=== PATIENT | female | born 1995 | race Hispanic/Latino ===

== ENCOUNTER 2017-12-20 19:43 | Observation (INO) | payer MEDICAID ==
[~2017-12-20] VITALS: Ht 167.6 cm; Wt 75.3 kg
[~2017-12-20 19:43] MED LIST: PREN-64 PO
[2017-12-20 20:19] LABS: APPEARANCE,URINE Clear (CLEAR); BILIRUBIN,URINE Negative (NEGATIVE); COLOR,URINE Yellow (YELLOW); GLUCOSE, URINE (UA) Negative (NEGATIVE); KETONES,URINE Negative (NEGATIVE); LEUKOCYTE ESTERASE ,URINE Negative (NEGATIVE); NITRATE,URINE Negative (NEGATIVE); OCCULT BLOOD,URINE Negative (NEGATIVE); PH,URINE 7.5 (5.0-8.0); PROTEIN,URINE Negative (NEGATIVE); UROBILINOGEN,URINE 0.2 mg/dL (0.2-1.0)
== END 2017-12-20 21:05 | disposition home or self-care (01) ==
LOC: EDH 19:43 → LDH 20:01
PROVIDERS: ADMIT Obstetrics & Gynecology; ATTEND Obstetrics & Gynecology
DX: O26.893 Other specified pregnancy related conditions, third trimester (principal); R10.9 Unspecified abdominal pain; Z3A.30 30 weeks gestation of pregnancy
CPT/HCPCS: 81003; 99285; G0378

== ENCOUNTER 2021-12-29 21:25 | Emergency (ER) | payer MEDICAID, OTHER ==
[~2021-12-29] VITALS: Ht 167.6 cm; Wt 86.2 kg
[2021-12-29] MEDS ORDERED: ONDANSETRON 4MG INJ IVP ONE (22:00)
[2021-12-29] MEDS ORDERED: LORAZEPAM 2 MG/ML 1 ML VIAL IVP ONE (22:00)
[2021-12-29] MEDS ORDERED: DICYCLOMINE 20MG (10MG/ML) AMP IM ONE (22:00)
[2021-12-29] MEDS ORDERED: 0.9%NACL 1000ML 2,000 ML IV ONE (22:00)
[2021-12-29 22:19] LABS: BASOPHILS % (AUTO) 0.3 % (0.0-5.0); EOSINOPHILS % (AUTO) 4.8 % (0.0-8.0); HEMATOCRIT 39.1 % (36-48); LYMPHOCYTES % (AUTO) 18.8 % (21.0-51.0); MEAN CORPUSCULAR HEMOGLOBIN 30.3 pg (27.0-33.0); MEAN CORPUSCULAR VOLUME 89.1 fL (79-99); MONOCYTES % (AUTO) 4.5 % (3.0-13.0); NEUTROPHILS % (AUTO) 71.3 % (40.0-77.0); PLATELET COUNT (AUTO) 386 K/uL (130-400); RED BLOOD CELL COUNT(AUTO) 4.39 MIL/uL (4.00-5.50); RED CELL DISTRIBUTION WIDTH 12.4 % (11.0-15.5); WHITE BLOOD COUNT (AUTO) 11.6 K/uL (4.8-10.8)
[2021-12-29 22:37] LABS: ALBUMIN 3.7 g/dL (3.5-5.0); BILIRUBIN,TOTAL 1.3 mg/dL (0.2-1.0); CREATININE 0.7 mg/dL (0.5-1.5); TOTAL PROTEIN, SERUM 7.2 g/dL (6.0-8.3)
[2021-12-29 23:01] LABS: APPEARANCE,URINE Cloudy (CLEAR); BILIRUBIN,URINE Negative (NEGATIVE); COLOR,URINE Dark Yellow (YELLOW); GLUCOSE, URINE (UA) Negative (NEGATIVE); KETONES,URINE Negative (NEGATIVE); LEUKOCYTE ESTERASE ,URINE Small (NEGATIVE); NITRATE,URINE Negative (NEGATIVE); OCCULT BLOOD,URINE Negative (NEGATIVE); PH,URINE 6.5 (5.0-8.0); PROTEIN,URINE Negative (NEGATIVE); UROBILINOGEN,URINE >=8.0 mg/dL (0.2-1.0)
[2021-12-29 23:09] LABS: RBC,URINE 0-1 /HPF (0-1)
[2021-12-29 23:10] LABS: BACTERIA,URINE Rare /HPF (None Seen); SQUAMOUS EPITHELIAL CELL,UR Many /HPF (0-2)
[2021-12-29 23:15] VITALS: BP 124/78
[2021-12-29 23:17] LABS: HCG,QUAL RESULT NEGATIVE (NEGATIVE)
[2021-12-30] MEDS ORDERED: POTASSIUM CHLORIDE 10% ELIXIR 20 MEQ/15 ML UDCUP PO ONE
[2021-12-30] MEDS ORDERED: ONDA4TAB10 PO (00:15)
[2021-12-30] MEDS ORDERED: HYOS0.124 SL (00:15)
== END 2021-12-30 00:43 | disposition home or self-care (01) ==
LOC: EDH 21:25
DX: K52.9 Noninfective gastroenteritis and colitis, unspecified (principal); E86.9 Volume depletion, unspecified; E87.6 Hypokalemia; F41.9 Anxiety disorder, unspecified; Z90.49 Acquired absence of other specified parts of digestive tract
CPT/HCPCS: 36415; 80053; 81001; 81025; 85025; 96361; 96372; 96374; 96375; 99284; J0500; J2060; J2405; J7030

== ENCOUNTER 2023-02-14 17:16 | Emergency (ER) | payer MEDICAID ==
[~2023-02-14] VITALS: Ht 170.2 cm; Wt 79.8 kg
[~2023-02-14 17:16] MED LIST changes: +HYOS0.124 SL; +ONDA4TAB10 PO
[2023-02-14 17:41] LABS: BASOPHILS % (AUTO) 0.7 % (0.0-5.0); EOSINOPHILS % (AUTO) 0.7 % (0.0-8.0); HEMATOCRIT 38.9 % (36-48); LYMPHOCYTES % (AUTO) 13.6 % (21.0-51.0); MEAN CORPUSCULAR HEMOGLOBIN 30.8 pg (27.0-33.0); MEAN CORPUSCULAR HGB CONC 33.7 g/dL (32.0-36.0); MEAN CORPUSCULAR VOLUME 91.3 fL (79-99); MONOCYTES % (AUTO) 8.2 % (3.0-13.0); NEUTROPHILS % (AUTO) 76.3 % (40.0-77.0); PLATELET COUNT (AUTO) 309 K/uL (130-400); RED BLOOD CELL COUNT(AUTO) 4.26 MIL/uL (4.00-5.50); WHITE BLOOD COUNT (AUTO) 8.3 K/uL (4.8-10.8)
[2023-02-14 17:46] LABS: HCG,QUALITATIVE URINE POSITIVE (NEGATIVE)
[2023-02-14 17:47] LABS: APPEARANCE,URINE CLEAR (CLEAR); BILIRUBIN,URINE NEGATIVE (NEGATIVE); COLOR,URINE COLORLESS (YELLOW); GLUCOSE, URINE (UA) NEGATIVE (NEGATIVE); KETONES,URINE NEGATIVE (NEGATIVE); LEUKOCYTE ESTERASE ,URINE NEGATIVE Leu/uL (NEGATIVE); NITRATE,URINE NEGATIVE (NEGATIVE); OCCULT BLOOD,URINE NEGATIVE (NEGATIVE); PROTEIN,URINE NEGATIVE (NEGATIVE); UROBILINOGEN,URINE 0.2 mg/dL (0.2-1.0)
[2023-02-14 17:51] LABS: ALBUMIN 3.6 g/dL (3.5-5.0); CREATININE 0.6 mg/dL (0.5-1.5); POTASSIUM 3.5 mmol/L (3.5-5.1); TOTAL PROTEIN, SERUM 7.6 g/dL (6.0-8.3)
[2023-02-14 17:52] LABS: RBC,URINE 0-1 /HPF (0-1); SQUAMOUS EPITHELIAL CELL,UR RARE /HPF (0-2); WBC,URINE 0-1 /HPF (0-1)
[2023-02-14 20:50] VITALS: BP 117/84
== END 2023-02-14 20:52 | disposition home or self-care (01) ==
LOC: EDH 17:16
DX: O26.891 Other specified pregnancy related conditions, first trimester (principal); R10.30 Lower abdominal pain, unspecified; R50.9 Fever, unspecified; F41.9 Anxiety disorder, unspecified; Z3A.09 9 weeks gestation of pregnancy; Z90.49 Acquired absence of other specified parts of digestive tract; Z79.899 Other long term (current) drug therapy
CPT/HCPCS: 36415; 76801; 80053; 81001; 81025; 85025

== ENCOUNTER 2023-03-22 16:44 | Emergency (ER) | payer MEDICAID ==
[~2023-03-22] VITALS: Ht 170.2 cm; Wt 82.3 kg
[2023-03-22 17:11] LABS: BASOPHILS % (AUTO) 0.4 % (0.0-5.0); EOSINOPHILS % (AUTO) 1.1 % (0.0-8.0); HEMATOCRIT 36.6 % (36-48); LYMPHOCYTES % (AUTO) 15.6 % (21.0-51.0); MEAN CORPUSCULAR HEMOGLOBIN 30.6 pg (27.0-33.0); MEAN CORPUSCULAR HGB CONC 34.2 g/dL (32.0-36.0); MEAN CORPUSCULAR VOLUME 89.5 fL (79-99); MONOCYTES % (AUTO) 6.1 % (3.0-13.0); PLATELET COUNT (AUTO) 310 K/uL (130-400); RED BLOOD CELL COUNT(AUTO) 4.09 MIL/uL (4.00-5.50); RED CELL DISTRIBUTION WIDTH 12.3 % (11.0-15.5)
[2023-03-22 17:32] LABS: ALBUMIN 3.1 g/dL (3.5-5.0); CREATININE 0.5 mg/dL (0.5-1.5); POTASSIUM 3.6 mmol/L (3.5-5.1)
[2023-03-22] MEDS ORDERED: DOXY1TAB3 PO (18:28)
[2023-03-22 18:40] LABS: APPEARANCE,URINE CLOUDY (CLEAR); BILIRUBIN,URINE NEGATIVE (NEGATIVE); COLOR,URINE LIGHT-YELLOW (YELLOW); GLUCOSE, URINE (UA) NEGATIVE (NEGATIVE); KETONES,URINE NEGATIVE (NEGATIVE); LEUKOCYTE ESTERASE ,URINE NEGATIVE Leu/uL (NEGATIVE); NITRATE,URINE NEGATIVE (NEGATIVE); OCCULT BLOOD,URINE NEGATIVE (NEGATIVE); PROTEIN,URINE NEGATIVE (NEGATIVE); UROBILINOGEN,URINE 0.2 mg/dL (0.2-1.0)
[2023-03-22 18:41] LABS: HCG,QUALITATIVE URINE POSITIVE (NEGATIVE)
[2023-03-22 18:47] LABS: MUCUS,URINE RARE LPF (None Seen); SQUAMOUS EPITHELIAL CELL,UR FEW /HPF (0-2); YEAST,URINE BUDDING RARE /HPF (None Seen)
[2023-03-22 18:51] LABS: HCG,QUANTITATIVE 30589 mIU/mL (0-5); LIPASE 62 U/L (114-286)
[2023-03-22] MEDS ORDERED: ONDANSETRON ODT 4MG TAB SL ONE (19:00)
[2023-03-22] MEDS ORDERED: ACETAMINOPHEN 325 MG TAB PO ONE (19:00)
[2023-03-22 19:25] VITALS: BP 114/77
== END 2023-03-22 20:00 | disposition home or self-care (01) ==
LOC: EDH 16:44
DX: O21.0 Mild hyperemesis gravidarum (principal); O26.892 Other specified pregnancy related conditions, second trimester; R55 Syncope and collapse; S09.90XA Unspecified injury of head, initial encounter; F41.9 Anxiety disorder, unspecified; Z3A.14 14 weeks gestation of pregnancy; Z90.49 Acquired absence of other specified parts of digestive tract; W18.30XA Fall on same level, unspecified, initial encounter; Y93.89 Activity, other specified; Y92.89 Other specified places as the place of occurrence of the external cause; Y99.8 Other external cause status
CPT/HCPCS: 36415; 76805; 80053; 81001; 81025; 83690; 84702; 85025; 87088; 93005

== ENCOUNTER 2023-03-24 18:42 | Emergency (ER) | payer MEDICAID ==
[~2023-03-24] VITALS: Ht 170.2 cm; Wt 81.6 kg
[~2023-03-24 18:42] MED LIST changes: +DOXY1TAB3 PO
[2023-03-24] MEDS ORDERED: ONDANSETRON 4MG INJ IVP ONE (19:30)
[2023-03-24] MEDS ORDERED: 0.9%NACL 1000ML 1,000 ML IV SCH (19:30)
[2023-03-24 20:11] LABS: BASOPHILS % (AUTO) 0.6 % (0.0-5.0); EOSINOPHILS % (AUTO) 1.4 % (0.0-8.0); LYMPHOCYTES % (AUTO) 18.4 % (21.0-51.0); MEAN CORPUSCULAR HEMOGLOBIN 30.9 pg (27.0-33.0); MEAN CORPUSCULAR HGB CONC 34.3 g/dL (32.0-36.0); MONOCYTES % (AUTO) 4.9 % (3.0-13.0); PLATELET COUNT (AUTO) 291 K/uL (130-400); RED BLOOD CELL COUNT(AUTO) 4.11 MIL/uL (4.00-5.50); RED CELL DISTRIBUTION WIDTH 12.2 % (11.0-15.5); WHITE BLOOD COUNT (AUTO) 10.6 K/uL (4.8-10.8)
[2023-03-24 20:21] LABS: CREATININE 0.6 mg/dL (0.5-1.5); HCG,QUALITATIVE URINE POSITIVE (NEGATIVE); POTASSIUM 3.6 mmol/L (3.5-5.1)
[2023-03-24 20:22] LABS: APPEARANCE,URINE CLOUDY (CLEAR); BILIRUBIN,URINE NEGATIVE (NEGATIVE); COLOR,URINE YELLOW (YELLOW); GLUCOSE, URINE (UA) NEGATIVE (NEGATIVE); KETONES,URINE 10 mg/dL (NEGATIVE); LEUKOCYTE ESTERASE ,URINE NEGATIVE Leu/uL (NEGATIVE); NITRATE,URINE NEGATIVE (NEGATIVE); OCCULT BLOOD,URINE NEGATIVE (NEGATIVE); PH,URINE 6.5 (5.0-8.0); PROTEIN,URINE 70 mg/dL (NEGATIVE); UROBILINOGEN,URINE 0.2 mg/dL (0.2-1.0)
[2023-03-24 20:29] LABS: ALBUMIN 3.1 g/dL (3.5-5.0); BACTERIA,URINE RARE /HPF (None Seen); MUCUS,URINE MOD LPF (None Seen); SQUAMOUS EPITHELIAL CELL,UR MOD /HPF (0-2); TOTAL PROTEIN, SERUM 7.2 g/dL (6.0-8.3)
[2023-03-24] MEDS ORDERED: DOXY1TAB8 PO (21:11)
[2023-03-24 22:14] VITALS: BP 117/72
== END 2023-03-24 22:34 | disposition home or self-care (01) ==
LOC: EDH 18:42
DX: O21.0 Mild hyperemesis gravidarum (principal); O26.892 Other specified pregnancy related conditions, second trimester; F41.9 Anxiety disorder, unspecified; Z3A.15 15 weeks gestation of pregnancy; Z79.899 Other long term (current) drug therapy; Z98.890 Other specified postprocedural states; Z90.49 Acquired absence of other specified parts of digestive tract
CPT/HCPCS: 99285; 96374; 76805; 96361; 80053; 83690; 85025; 81001; 81025; 36415; J7030; J2405

== ENCOUNTER 2023-05-27 22:27 | Observation (INO) | payer MEDICAID ==
[~2023-05-27] VITALS: Ht 170.2 cm; Wt 89.8 kg
[~2023-05-27 22:27] MED LIST changes: +DOXY1TAB8 PO
[2023-05-27 22:28] VITALS: BP 124/74
[2023-05-27 23:04] LABS: APPEARANCE,URINE CLEAR (CLEAR); BILIRUBIN,URINE NEGATIVE (NEGATIVE); GLUCOSE, URINE (UA) NEGATIVE (NEGATIVE); KETONES,URINE NEGATIVE (NEGATIVE); LEUKOCYTE ESTERASE ,URINE NEGATIVE Leu/uL (NEGATIVE); NITRATE,URINE NEGATIVE (NEGATIVE); OCCULT BLOOD,URINE NEGATIVE (NEGATIVE); PROTEIN,URINE NEGATIVE (NEGATIVE); UROBILINOGEN,URINE 0.2 mg/dL (0.2-1.0)
[2023-05-27 23:07] LABS: COLOR,URINE Light-Yellow (YELLOW)
[2023-05-27 23:11] LABS: AMPHET/METH SCREEN,URINE NEGATIVE (NEGATIVE); BARBITURATE SCREEN, URINE NEGATIVE (NEGATIVE); BENZODIAZEPINES SCREEN,URINE NEGATIVE (NEGATIVE); CANNABINOID SCREEN,URINE NEGATIVE (NEGATIVE); COCAINE SCREEN,URINE NEGATIVE (NEGATIVE); OPIATE SCREEN,URINE NEGATIVE (NEGATIVE); PHENCYCLIDINE SCREEN,URINE NEGATIVE (NEGATIVE)
[2023-05-27] MEDS ORDERED: LACTATED RINGERS 1000ML IV PRN (23:30)
== END 2023-05-28 00:42 | disposition home or self-care (01) ==
LOC: EDH 22:27 → LDH 22:38
PROVIDERS: ADMIT Obstetrics & Gynecology; ATTEND Obstetrics & Gynecology
DX: O62.9 Abnormality of forces of labor, unspecified (principal); O26.892 Other specified pregnancy related conditions, second trimester; R10.2 Pelvic and perineal pain; Z3A.24 24 weeks gestation of pregnancy; Z79.899 Other long term (current) drug therapy
CPT/HCPCS: 59025; 80305; 81003; 96360; G0378 ×2; G0379

== ENCOUNTER 2023-06-09 21:35 | Observation (INO) | payer MEDICAID ==
[~2023-06-09] VITALS: Ht 170.2 cm; Wt 95.3 kg
[2023-06-09 21:58] VITALS: BP 127/77; PULSE 84; RESP 18
[2023-06-09 23:50] LABS: APPEARANCE,URINE CLEAR (CLEAR); BILIRUBIN,URINE NEGATIVE (NEGATIVE); COLOR,URINE LIGHT-YELLOW (YELLOW); GLUCOSE, URINE (UA) NEGATIVE (NEGATIVE); KETONES,URINE NEGATIVE (NEGATIVE); LEUKOCYTE ESTERASE ,URINE NEGATIVE Leu/uL (NEGATIVE); NITRATE,URINE NEGATIVE (NEGATIVE); OCCULT BLOOD,URINE NEGATIVE (NEGATIVE); PH,URINE 7.5 (5.0-8.0); PROTEIN,URINE NEGATIVE (NEGATIVE); UROBILINOGEN,URINE 0.2 mg/dL (0.2-1.0)
== END 2023-06-10 00:15 | disposition home or self-care (01) ==
LOC: EDH 21:35 → LDH 21:36
PROVIDERS: ADMIT Obstetrics & Gynecology; ATTEND Obstetrics & Gynecology
DX: O26.892 Other specified pregnancy related conditions, second trimester (principal); R10.31 Right lower quadrant pain; R10.2 Pelvic and perineal pain; Z3A.26 26 weeks gestation of pregnancy
CPT/HCPCS: 59025; 81003; G0378 ×2

== ENCOUNTER 2023-07-15 19:25 | Observation (INO) | payer MEDICAID ==
[~2023-07-15] VITALS: Ht 170.2 cm; Wt 93.0 kg
[2023-07-15 20:05] VITALS: BP 123/77; PULSE 112; RESP 20
[2023-07-15 20:37] LABS: APPEARANCE,URINE CLOUDY (CLEAR); BILIRUBIN,URINE NEGATIVE (NEGATIVE); COLOR,URINE LIGHT-YELLOW (YELLOW); GLUCOSE, URINE (UA) NEGATIVE (NEGATIVE); KETONES,URINE NEGATIVE (NEGATIVE); LEUKOCYTE ESTERASE ,URINE 25 Leu/uL (NEGATIVE); NITRATE,URINE NEGATIVE (NEGATIVE); OCCULT BLOOD,URINE NEGATIVE (NEGATIVE); PH,URINE 6.5 (5.0-8.0); PROTEIN,URINE NEGATIVE (NEGATIVE); UROBILINOGEN,URINE 0.2 mg/dL (0.2-1.0)
[2023-07-15 20:38] LABS: ADD UA MICROSCOPIC YES
[2023-07-15 20:44] LABS: BACTERIA,URINE RARE /HPF (None Seen); MUCUS,URINE RARE LPF (None Seen); SQUAMOUS EPITHELIAL CELL,UR MOD /HPF (0-2)
== END 2023-07-15 22:05 | disposition home or self-care (01) ==
LOC: EDH 19:25 → LDH 20:20
PROVIDERS: ADMIT Obstetrics & Gynecology; ATTEND Obstetrics & Gynecology
DX: O36.8130 Decreased fetal movements, third trimester, not applicable or unspecified (principal); Z3A.31 31 weeks gestation of pregnancy
CPT/HCPCS: 59025; 81001; 76819; G0378 ×2; G0379

== ENCOUNTER 2023-07-24 08:59 | Observation (INO) | payer MEDICAID ==
[~2023-07-24] VITALS: Ht 170.2 cm; Wt 93.0 kg
[2023-07-24 09:04] VITALS: PULSE 106; RESP 20
[2023-07-24] MEDS ORDERED: LACTATED RINGERS 1000ML 1,000 ML IV PRN (09:30)
[2023-07-24 10:12] LABS: APPEARANCE,URINE CLOUDY (CLEAR); BILIRUBIN,URINE NEGATIVE (NEGATIVE); COLOR,URINE YELLOW (YELLOW); GLUCOSE, URINE (UA) NEGATIVE (NEGATIVE); KETONES,URINE 40 mg/dL (NEGATIVE); LEUKOCYTE ESTERASE ,URINE NEGATIVE Leu/uL (NEGATIVE); NITRATE,URINE NEGATIVE (NEGATIVE); OCCULT BLOOD,URINE NEGATIVE (NEGATIVE); PH,URINE 6.5 (5.0-8.0); PROTEIN,URINE 50 mg/dL (NEGATIVE); UROBILINOGEN,URINE 0.2 mg/dL (0.2-1.0)
[2023-07-24 10:13] LABS: ADD UA MICROSCOPIC YES
[2023-07-24 10:25] LABS: BACTERIA,URINE RARE /HPF (None Seen); MUCUS,URINE RARE LPF (None Seen); SQUAMOUS EPITHELIAL CELL,UR MOD /HPF (0-2)
[2023-07-24 10:37] LABS: INFLUENZA TYPE A Negative For Type A (NEGATIVE); INFLUENZA TYPE B Negative For Type B (NEGATIVE)
[2023-07-24 12:03] VITALS: BP 107/65
== END 2023-07-24 12:15 | disposition home or self-care (01) ==
LOC: EDH 08:59 → LDH 09:00 → EDH 09:11
PROVIDERS: ADMIT Obstetrics & Gynecology; ATTEND Obstetrics & Gynecology
DX: O62.9 Abnormality of forces of labor, unspecified (principal); Z20.822 Contact with and (suspected) exposure to COVID-19; O21.2 Late vomiting of pregnancy; Z3A.32 32 weeks gestation of pregnancy
CPT/HCPCS: 59025; 96360; 96361; 87804 ×2; 87426; 81001; G0378 ×3; J7120

== ENCOUNTER 2023-08-02 17:16 | Observation (INO) | payer MEDICAID ==
[~2023-08-02] VITALS: Ht 170.2 cm; Wt 93.4 kg
[2023-08-02 17:45] LABS: APPEARANCE,URINE CLEAR (CLEAR); BILIRUBIN,URINE NEGATIVE (NEGATIVE); COLOR,URINE LIGHT-YELLOW (YELLOW); GLUCOSE, URINE (UA) NEGATIVE (NEGATIVE); KETONES,URINE NEGATIVE (NEGATIVE); LEUKOCYTE ESTERASE ,URINE NEGATIVE Leu/uL (NEGATIVE); NITRATE,URINE NEGATIVE (NEGATIVE); OCCULT BLOOD,URINE NEGATIVE (NEGATIVE); PH,URINE 6.5 (5.0-8.0); PROTEIN,URINE 10 mg/dL (NEGATIVE); UROBILINOGEN,URINE 0.2 mg/dL (0.2-1.0)
[2023-08-02 17:49] LABS: ADD UA MICROSCOPIC YES; BACTERIA,URINE RARE /HPF (None Seen); MUCUS,URINE RARE LPF (None Seen); RBC,URINE 0-1 /HPF (0-1); SQUAMOUS EPITHELIAL CELL,UR FEW /HPF (0-2); WBC,URINE 0-1 /HPF (0-1)
[2023-08-02 17:52] LABS: AMPHET/METH SCREEN,URINE NEGATIVE (NEGATIVE); BARBITURATE SCREEN, URINE NEGATIVE (NEGATIVE); BENZODIAZEPINES SCREEN,URINE NEGATIVE (NEGATIVE); CANNABINOID SCREEN,URINE NEGATIVE (NEGATIVE); COCAINE SCREEN,URINE NEGATIVE (NEGATIVE); OPIATE SCREEN,URINE NEGATIVE (NEGATIVE); PHENCYCLIDINE SCREEN,URINE NEGATIVE (NEGATIVE)
== END 2023-08-02 18:18 | disposition home or self-care (01) ==
LOC: LDH 17:16
PROVIDERS: ADMIT Obstetrics & Gynecology; ATTEND Obstetrics & Gynecology
DX: O62.9 Abnormality of forces of labor, unspecified (principal); O99.343 Other mental disorders complicating pregnancy, third trimester; F32.A Depression, unspecified; Z3A.33 33 weeks gestation of pregnancy
CPT/HCPCS: 80305; 81001; G0379; G0378

== ENCOUNTER 2023-09-01 15:34 | Observation (INO) | payer MEDICAID ==
[~2023-09-01] VITALS: Ht 170.2 cm; Wt 97.1 kg
[2023-09-01 15:35] VITALS: PULSE 123; RESP 22
[2023-09-01] MEDS ORDERED: LACTATED RINGERS 1000ML 1,000 ML IV PRN (16:00)
[2023-09-01 16:27] LABS: BASOPHILS # (AUTO) 0.03 K/uL (0.00-0.20); BASOPHILS % (AUTO) 0.3 % (0.0-5.0); EOSINOPHILS # (AUTO) 0.07 K/uL (0.00-0.70); EOSINOPHILS % (AUTO) 0.8 % (0.0-8.0); HEMATOCRIT 30.9 % (36-48); IMMATURE GRANULOCYTE ABSOLUTE 0.07 K/uL (0-1); LYMPHOCYTES # (AUTO) 1.1 K/uL (1.0-4.8); LYMPHOCYTES % (AUTO) 13.1 % (21.0-51.0); MEAN CORPUSCULAR HEMOGLOBIN 28.9 pg (27.0-33.0); MEAN CORPUSCULAR HGB CONC 33.3 g/dL (32.0-36.0); MEAN CORPUSCULAR VOLUME 86.6 fL (79-99); MONOCYTES # (AUTO) 0.4 K/uL (0.1-1.0); MONOCYTES % (AUTO) 4.8 % (3.0-13.0); NEUTROPHILS % (AUTO) 80.2 % (40.0-77.0); PLATELET COUNT (AUTO) 260 K/uL (130-400); RED BLOOD CELL COUNT(AUTO) 3.57 MIL/uL (4.00-5.50); RED CELL DISTRIBUTION WIDTH 13.6 % (11.0-15.5); WHITE BLOOD COUNT (AUTO) 8.7 K/uL (4.8-10.8)
[2023-09-01 16:29] LABS: ADD UA MICROSCOPIC YES; APPEARANCE,URINE HAZY (CLEAR); BILIRUBIN,URINE NEGATIVE (NEGATIVE); COLOR,URINE LIGHT-YELLOW (YELLOW); GLUCOSE, URINE (UA) 70 mg/dL (NEGATIVE); KETONES,URINE 5 mg/dL (NEGATIVE); LEUKOCYTE ESTERASE ,URINE 25 Leu/uL (NEGATIVE); NITRATE,URINE NEGATIVE (NEGATIVE); OCCULT BLOOD,URINE NEGATIVE (NEGATIVE); PROTEIN,URINE NEGATIVE (NEGATIVE); UROBILINOGEN,URINE 0.2 mg/dL (0.2-1.0)
[2023-09-01 16:31] LABS: BACTERIA,URINE FEW /HPF (None Seen); MUCUS,URINE RARE LPF (None Seen); RBC,URINE 0-1 /HPF (0-1); SQUAMOUS EPITHELIAL CELL,UR MANY /HPF (0-2)
[2023-09-01 16:38] LABS: INR < 0.93 (0.85-1.15)
[2023-09-01 16:39] LABS: CREATININE 0.6 mg/dL (0.5-1.5); PARTIAL THROMBOPLASTIN TIME 28.4 SEC (26.3-35.5); POTASSIUM 3.2 mmol/L (3.5-5.1)
[2023-09-01 16:43] LABS: FIBRINOGEN 498 mg/dL (180-350)
[2023-09-01 16:46] LABS: ALBUMIN 2.5 g/dL (3.5-5.0); BILIRUBIN,TOTAL 0.4 mg/dL (0.2-1.0); TOTAL PROTEIN, SERUM 6.7 g/dL (6.0-8.3); URIC ACID 3.8 mg/dL (2.6-7.2)
[2023-09-01 17:02] VITALS: BP 120/70
== END 2023-09-01 17:20 | disposition home or self-care (01) ==
LOC: EDH 15:34 → LDH 15:48
PROVIDERS: ADMIT Obstetrics & Gynecology; ATTEND Obstetrics & Gynecology
DX: O12.03 Gestational edema, third trimester (principal); O99.343 Other mental disorders complicating pregnancy, third trimester; O99.513 Diseases of the respiratory system complicating pregnancy, third trimester; F32.A Depression, unspecified; F41.8 Other specified anxiety disorders; J45.909 Unspecified asthma, uncomplicated; Z3A.38 38 weeks gestation of pregnancy; Z90.89 Acquired absence of other organs
CPT/HCPCS: 84550; 80053; 85025; 85384; 85610; 85730; 81001; 36415; G0379; G0378

== ENCOUNTER 2023-09-18 17:18 | Inpatient (IN) | payer MEDICAID ==
[~2023-09-18] VITALS: Ht 170.2 cm; Wt 111.6 kg
[2023-09-18 17:45] LABS: APPEARANCE,URINE CLOUDY (CLEAR); BILIRUBIN,URINE NEGATIVE (NEGATIVE); COLOR,URINE YELLOW (YELLOW); GLUCOSE, URINE (UA) NEGATIVE (NEGATIVE); KETONES,URINE 5 mg/dL (NEGATIVE); LEUKOCYTE ESTERASE ,URINE 75 Leu/uL (NEGATIVE); NITRATE,URINE NEGATIVE (NEGATIVE); OCCULT BLOOD,URINE NEGATIVE (NEGATIVE); PROTEIN,URINE 30 mg/dL (NEGATIVE); UROBILINOGEN,URINE 0.2 mg/dL (0.2-1.0)
[2023-09-18 17:46] LABS: ADD UA MICROSCOPIC YES
[2023-09-18 17:51] LABS: BACTERIA,URINE FEW /HPF (None Seen); MUCUS,URINE FEW LPF (None Seen); SQUAMOUS EPITHELIAL CELL,UR FEW /HPF (0-2)
[2023-09-18] MEDS ORDERED: AMPICILLIN 2GM+NS 100ML 100 ML IV SCH (18:00)
[2023-09-18] MEDS ORDERED: DINOPROSTONE 10 MG VAGINAL SUPP VG ONE (18:00)
[2023-09-18] MEDS ORDERED: LACTATED RINGERS 1000ML 1,000 ML IV PRN (18:00)
[2023-09-18] MEDS ORDERED: PROMETHAZINE HCL 25 MG/ML 1ML AMPULE IM PRN (18:00)
[2023-09-18] MEDS ORDERED: MEPERIDINE-PF 50 MG/ML SYG IVP PRN (18:00)
[2023-09-18 18:01] LABS: HEMATOCRIT 31.1 % (36-48); MEAN CORPUSCULAR HEMOGLOBIN 28.1 pg (27.0-33.0); MEAN CORPUSCULAR HGB CONC 32.5 g/dL (32.0-36.0); MEAN CORPUSCULAR VOLUME 86.6 fL (79-99); RED BLOOD CELL COUNT(AUTO) 3.59 MIL/uL (4.00-5.50); RED CELL DISTRIBUTION WIDTH 14.1 % (11.0-15.5)
[2023-09-18 18:35] LABS: HIV 1&2 ANTIBODY Non-Reactive (Negative)
[2023-09-18 18:36] LABS: HIV-1 p24 Antigen Non-Reactive (Negative)
[2023-09-18] MEDS: AMPICILLIN 1GM+NS 50ML 50 ML IV SCH (23:11)
[2023-09-19] MEDS: AMPICILLIN 1GM+NS 50ML 50 ML IV SCH ×2 (03:19→06:47)
[2023-09-19] MEDS ORDERED: OXYTOCIN-LR 30 UNITS/500ML 500 ML IV SCH (07:00)
[2023-09-19] MEDS ORDERED: CEFAZOLIN SODIUM 1 GM VIAL IVPB PRN (07:00)
[2023-09-19] MEDS ORDERED: ONDANSETRON 4MG INJ ONE ×2 (07:19→10:17)
[2023-09-19] MEDS ORDERED: MORPHINE PF 100MG/10ML AMP IV ONE (07:19)
[2023-09-19] MEDS ORDERED: CEFAZOLIN SODIUM 3 GM VIAL IVPB ONE (07:23)
[2023-09-19] MEDS ORDERED: EPHEDRINE SULFATE 50 MG/ML AMPULE ONE (07:35)
[2023-09-19] MEDS ORDERED: OXYTOCIN 10 USP UNITS/ML ONE (07:42)
[2023-09-19] MEDS ORDERED: OXYTOCIN-LR 30 UNITS/500ML 500 ML IV PRN (08:30)
[2023-09-19] MEDS ORDERED: 0.9%NACL 10ML VIAL IVP PRN (08:30)
[2023-09-19] MEDS ORDERED: PROMETHAZINE HCL 25 MG/ML 1ML AMPULE IM PRN (08:30)
[2023-09-19] MEDS ORDERED: MEPERIDINE-PF 75 MG/ML SYG IM PRN (08:30)
[2023-09-19 09:09] LABS: RAPID PLASMA REAGIN NONREACTIVE (NONREACTIVE)
[2023-09-19] MEDS ORDERED: ONDANSETRON 4MG INJ IVP PRN (10:30)
[2023-09-19 11:00] VITALS: BP 113/69; PULSE 71; RESP 18
[2023-09-19] MEDS: CEFAZOLIN SODIUM 2 GM VIAL IVPB SCH (15:18)
[2023-09-19] MEDS: DEXTROSE 5 %-0.45 % NACL 1,000 ML IV PRN (15:19)
[2023-09-19] MEDS ORDERED: DiphenhydrAMINE HCL 50 MG/ML VIAL IV ONE (15:45)
[2023-09-19 16:12] VITALS: BP 102/51; PULSE 89; RESP 18
[2023-09-19 19:23] VITALS: BP 105/47; PULSE 96; RESP 18
[2023-09-19 23:10] VITALS: BP 98/60; PULSE 96; RESP 18
[2023-09-20] MEDS: CEFAZOLIN SODIUM 2 GM VIAL IVPB SCH (00:01)
[2023-09-20] MEDS ORDERED: BISACODYL 10 MG SUPP.RECT RC PRN (00:30)
[2023-09-20] MEDS ORDERED: LANOLIN 30GM OINTMENT TP PRN (00:30)
[2023-09-20] MEDS ORDERED: HYDROCODONE/ACETAMINOPHEN 5/325 MG TAB PO PRN (00:30)
[2023-09-20] MEDS ORDERED: ACETAMINOPHEN WITH CODEINE 1 TAB TAB PO PRN (00:30)
[2023-09-20] MEDS ORDERED: IBUPROFEN 600 MG TABLET PO PRN (00:30)
[2023-09-20] MEDS ORDERED: ACETAMINOPHEN 500 MG TABLET PO PRN (00:30)
[2023-09-20] MEDS ORDERED: DIPHENHYDRAMINE HCL 25 MG CAPSULE PO PRN (00:30)
[2023-09-20] MEDS: DEXTROSE 5 %-0.45 % NACL 1,000 ML IV PRN (02:33)
[2023-09-20 04:00] VITALS: BP 104/54; PULSE 90; RESP 18
[2023-09-20 06:48] LABS: HEMATOCRIT 25.7 % (36-48); MEAN CORPUSCULAR HEMOGLOBIN 27.3 pg (27.0-33.0); MEAN CORPUSCULAR HGB CONC 31.9 g/dL (32.0-36.0); MEAN CORPUSCULAR VOLUME 85.7 fL (79-99); RED CELL DISTRIBUTION WIDTH 14.6 % (11.0-15.5); WHITE BLOOD COUNT (AUTO) 9.1 K/uL (4.8-10.8)
[2023-09-20 07:07] VITALS: BP 110/89; PULSE 66; RESP 18
[2023-09-20] MEDS ORDERED: DOCUSATE SODIUM 100 MG CAP PO SCH (09:00)
[2023-09-20] MEDS: SIMETHICONE 80 MG TAB.CHEW PO PRN ×2 (09:19→12:44)
[2023-09-20 12:00] VITALS: BP 101/74; PULSE 91; RESP 20
[2023-09-20] MEDS ORDERED: ACET-2079 PO (12:58)
[2023-09-20 15:53] VITALS: BP 121/71; PULSE 95
[2023-09-20] MEDS ORDERED: DIPH,PERTUSS(ACELL),TET VAC/PF 0.5 ML VIAL IM ONE (23:30)
[2023-09-20] MEDS ORDERED: FLU VACC QS2023-24(6MOS UP)/PF 60 MCG/0.5 ML IM ONE (23:50)
== END 2023-09-20 15:50 | disposition home or self-care (01) | DRG 540 ==
LOC: LDH 17:18 → WSH 09-19 10:55
PROVIDERS: ADMIT Obstetrics & Gynecology; ATTEND Obstetrics & Gynecology
PROC: 10D00Z1 Extraction of Products of Conception, Low, Open Approach (ICD-10-PCS; principal; 2023-09-19 07:00)
DX: O36.60X0 Maternal care for excessive fetal growth, unspecified trimester, not applicable or unspecified (principal); O48.0 Post-term pregnancy; O99.824 Streptococcus B carrier state complicating childbirth; Z3A.40 40 weeks gestation of pregnancy
CPT/HCPCS: 36415; 59510; 76805; 81001; 85027; 86592; 86701; 86850; 86900; 86901; 87088; 87340; 87390; A4344; G0378; J0290; J0690; J1200; J2175; J2274; J2405; J2550; J2590; J3490; J7120; A4248; A4649